=== PATIENT | male | born 1985 | race Caucasian/White ===

== ENCOUNTER 2019-10-08 06:45 | Day surgery (SDC) | payer BC, SELFPAY ==
[2019-10-05 09:52] VITALS: BMI 34.2
[2019-10-08 07:16] VITALS: BP 130/79; PULSE 89; RESP 18; TEMP 36.4; O2SAT 99
[2019-10-08 08:20] LABS: Coronavirus 19 IgG Antibody Negative (Negative); Coronavirus 19 IgM Antibody Negative (Negative)
--- NOTE | 2019-10-08 08:31 | P.PN_ITS ---
[facility] Anesthesia Checklist - Patient Identification Patient Identification: Arm Band - Structural Data Admitted From: Home Planned Operative Procedure/s: vasectomy Consent for Planned Operative Procedure(s) Verified: Yes Verified Documents: Surgical Consent, History and Physical - NPO Status Verified Time NPO: 00:00 - Additional verifications Anesthesia Reactions: No Hx Blood Transfusions: No - Airway Assessment C-Spine Mobility Assessed: Yes (mp2) TMJ Mobility Assessed: Yes Dentition: Good Dentition - Neurological Assessment Level of Consciousness: Awake, Alert - Anesthesia Plan Anesthesia Risk discussed: Yes Anesthesia Plan: Verified ASA Class: II Anesthesia Type: MAC [facility] History I have reviewed the patient's past medical history: Yes Medical History: Reports:: Anxiety, Depression, Hyperlipidemia Denies:: Cancer, Diabetes Mellitus Type 1, Diabetes Mellitus Type 2, Internal Pacemaker, MRSA, Seizures *Have you ever received a pneumonia vaccine?: No *Have you received a flu vaccine this season?: No Anesthesia experience/problems:: nac Other Surgeries: Yes: Hernia Repair. No: Pacemaker Amputation: No Fractures: No - *Social History Educational Level: Completed High School Smoking Status: Current every day smoker Tobacco Type: cigarettes # Packs/Day (cigarettes): 1 Alcohol Intake: never Alcohol Intake Frequency:: a few times a week Substance Use Type: denies use *Occupational Status:: employed Housing: house Household Members: children *Travel in the last 8 weeks: None - Psychiatric History Pschychiatric History:: Reports:: Anxiety, Depression Family Hx:: Cancer, Diabetes, Hyperlipidemia, Hypertension
[2019-10-08 10:20] VITALS: TEMP 43
[2019-10-08 10:42] VITALS: BP 109/74; PULSE 88; RESP 16; TEMP 36.9; O2SAT 99
[2019-10-08 10:57] VITALS: BP 119/72; PULSE 89; RESP 16; O2SAT 99
[2019-10-08 11:12] VITALS: BP 120/78; PULSE 86; RESP 16; O2SAT 100
--- NOTE | 2019-10-08 15:29 | HMH.OPNOTE ---
Date of procedure: 10/08/19 Pre-op Diagnosis:: Sterilization Post-op Diagnosis:: Same Procedure performed:: Bilateral vasectomy Surgeon:: Arvind Arambula MD GMAT INSTRUCTOR:: Denzel Lewis Anesthesia: MAC Estimated blood loss (mL): 2 Clinical Note:: Patient is a 33-year-old white male who was seen in August for vasectomy consultation. He presents today for the procedure. Operative findings:: Testicular exam normal. Procedure went well without complication Operative note:: Patient taken to the operating room after informed consent was obtained. Placed on the operating table in the supine position and monitored anesthesia care administered. He was prepped and draped in the standard surgical fashion. Left vas was grasped and brought up to the median raphae. Local anesthetic placed under the skin and in and around the left vas. Incision was then made in the skin and the left vas was grasped with a tenaculum. The vas was brought up through the skin and the basal sheath was incised. The vas proper was dissected from its surrounding tissue and one clip was placed distally and 2 proximally. A 1 cm segment was excised and the ends of the vas were cauterized. Hemostasis achieved of the vascular structures and the left vas was dropped back in the left hemiscrotum. Identical procedure was performed on the right side after local anesthetic was infiltrated in and around the right vas. The right vas dropped back into the right hemiscrotum and a 3-0 chromic placed into the skin and a horizontal mattress fashion. Pressure dressing applied. Patient tolerated procedure well without complication. Discharged to the recovery room with routine postoperative instructions and medications. Condition: stable Disposition: same day Specimens:: Vas segments were removed but not sent Complications:: None
== END 2019-10-08 11:12 | disposition home or self-care (01) ==
PROVIDERS: PCP Family Medicine; Visit Provider Urology
PROC: (CPT 55250; principal; 2019-10-08 09:45)
DX: Z30.2 Encounter for sterilization (principal); F41.9 Anxiety disorder, unspecified; F32.9 Major depressive disorder, single episode, unspecified; N52.9 Male erectile dysfunction, unspecified; Z83.3 Family history of diabetes mellitus; Z82.3 Family history of stroke; Z82.49 Family history of ischemic heart disease and other diseases of the circulatory system
CPT/HCPCS: 55250; 36415; 86328; 96374

== ENCOUNTER 2020-08-20 09:31 | Emergency (ER) | payer BC, SELFPAY ==
[2020-08-20 09:35] VITALS: BP 125/87; PULSE 123; RESP 20; TEMP 36.9; O2SAT 98; BMI 32.8
--- NOTE | 2020-08-20 09:59 | HMH.EDUTC ---
[facility] Disposition Clinical Impression: Gastroenteritis Disposition: Home, Self-Care Condition on Discharge: Good Instructions: DI for Viral Gastroenteritis -- Adult, Ondansetron Additional Instructions: Drink plenty of fluids. Take tylenol for pain or fever. Take the zofran for nausea/vomiting. Follow up with your regular doctor. GO TO THE ER FOR ANY WORSENING SYMPTOMS Prescriptions: Ondansetron [Zofran 4mg ODT] 4 mg PO Q8HP PRN #12 tab.rapdis PRN Reason: Nausea Transmission Status: Received by [id number] Referrals: Mak Richards MD [Primary Care Provider] - Forms: Work/School Release Time of Disposition: 10:06 Medical Decision Making - Medical Records Medical records reviewed: No: I reviewed the patient's medical records. - Anoop Inquiry Pt receiving controlled substance: No Vital Signs: 08/20/20 09:35 08/20/20 10:07 Temperature 98.5 F 98.5 F Temperature Source Oral Pulse Rate 123 H Pulse Rate [Left Brachial] 123 H Respiratory Rate 20 20 Blood Pressure 125/87 Blood Pressure [Left Arm] 125/87 Blood Pressure Mean [Left Arm] 99 Blood Pressure Source [Left Arm] Automatic Cuff Blood Pressure Position [Left Arm] Sitting 02 Sat by Pulse Oximetry 98 Oxygen Delivery Method Room Air [facility] HPI - General Stated complaint: possible stomach bug Time Seen by Provider: 08/20/20 09:59 Mode of Arrival: Ambulatory Source of Information: Patient Limitations: No Limitations Description of Symptoms (Recalled from Triage Doc. by RN): PATIENT C/O VOMITING AND DIARRHEA THAT STARTED APPROX 2100 LAST NIGHT HEENT Symptoms (Recalled from RN notes): No Resp Symptoms (Recalled from RN notes): No Skin Symptoms (Recalled from RN notes): No MS Symptoms (Recalled from RN notes): No Functional Status (Recalled from RN notes): WNL - History of Present Illness Provider Complaint: He states that since last night he has had n/v/d. He denies any abdominal pain. His had similar symptoms 2 days ago. - Related Data Home Medications Medication Instructions Recorded Confirmed ARIPiprazole [Aripiprazole] 5 mg PO QHS 08/20/20 08/20/20 Buspirone HCl [Buspar 10mg 10 mg PO BID 08/20/20 08/20/20 tablet] Trazodone HCl 50 mg PO QHS PRN 08/20/20 08/20/20 Previous Rx's Medication Instructions Recorded Ondansetron [Zofran 4mg ODT] 4 mg PO Q8HP PRN #12 tab.rapdis 08/20/20 Allergies Allergy/AdvReac Type Severity Reaction Status Date / Time No Known Allergies Allergy Verified 08/11/20 15:54 - Worker's Comp Is this a Worker's Comp case?: No [facility] History - Hepatitis A Screen Drug use history?: No High risk sexual behaviors?: No History of sexually transmitted infection?: No Currently employed?: No Childcare worker?: No Do you have indoor plumbing?: Yes Do you have electricity?: Yes Attestation statement:: This patient has been screened for Hepatitis A risk factors. I have reviewed the patient's past medical history: Yes Medical History: Reports:: Anxiety, Depression, Hyperlipidemia Denies:: Cancer, Diabetes Mellitus Type 1, Diabetes Mellitus Type 2, Internal Pacemaker, MRSA, Seizures Other Surgeries: Yes: No Previous Surgery, Hernia Repair. No: Pacemaker Amputation: No Fractures: No - Social History Smoking Status: Current every day smoker Tobacco Type: cigarettes # Packs/Day (cigarettes): 1 Alcohol Intake: never Alcohol Intake Frequency:: a few times a week Substance Use Type: denies use Occupational Status: other Housing: house Household Members: children - Psychiatric History Pschychiatric History:: Reports:: Anxiety, Depression Family Hx:: Cancer, Diabetes, Hyperlipidemia, Hypertension ROS Obtained: Yes All systems reviewed & no additional complaints - Constitutional Constitutional: Reports chills, Denies fever(s), Reports poor appetite, Reports malaise - Eyes Eyes: Denies eye discharge - Cardiovascular Cardiovascular: Herminio
[2020-08-20 10:07] VITALS: BP 125/87; PULSE 123; RESP 20; TEMP 36.9; O2SAT 98
== END 2020-08-20 10:13 | disposition home or self-care (01) ==
PROVIDERS: Emergency Provider Nurse Practitioner Family; PCP Family Medicine
DX: K52.9 Noninfective gastroenteritis and colitis, unspecified (principal); F41.8 Other specified anxiety disorders; E78.5 Hyperlipidemia, unspecified; F17.210 Nicotine dependence, cigarettes, uncomplicated
CPT/HCPCS: 99202; G0463

== ENCOUNTER 2021-04-29 13:22 | Emergency (ER) | payer BC, SELFPAY ==
[2021-04-29 13:12] VITALS: BP 173/100; PULSE 124; RESP 24; TEMP 36.8; O2SAT 94; BMI 33.0
[2021-04-29 13:30] VITALS: BP 151/103; PULSE 101; RESP 17; O2SAT 96
--- NOTE | 2021-04-29 13:52 | HMH.EDGENADL ---
ED Disposition Clinical Impression: Drug overdose Disposition: Home, Self-Care Condition on Discharge: Fair Referrals: Provider,Referral, [Primary Care Provider] - - Critical Care Critical Care Time: No Attestation: On 04/29/21, the high probability of a clinically significant, sudden or life threatening deterioration of the following system(s) required my full and direct attention, intervention and personal management. The time I documented below is in addition to time spent performing reported procedures but includes the following listed in this critical care notation. Medical Decision Making - Anoop Inquiry Pt receiving controlled substance: Yes Anoop was queried for this patient: Yes Risks and benefits of using a controlled substance: were discussed with pt by me Vital Signs: 04/29/21 13:12 Temperature 98.3 F Temperature Source Oral Pulse Rate [Right Radial] 124 H Respiratory Rate 24 Blood Pressure [Right Arm] 173/100 H Blood Pressure Mean [Right Arm] 124 Blood Pressure Source [Right Arm] Automatic Cuff Blood Pressure Position [Right Arm] Sitting 02 Sat by Pulse Oximetry 94 L Oxygen Delivery Method Room Air Medical Decision Narrative: Patient is a 35-year-old male with no past medical history presenting to the ED after an overdose. Patient is awake, alert, not in acute distress patient is hemodynamically stable, afebrile. At this point is stable for discharge. Patient given strict return precautions and follow-up instructions. General Adult HPI - General Chief complaint: Overdose Stated complaint: OD Time Seen by Provider: 04/29/21 13:30 Mode of Arrival: EMS Limitations: No Limitations Description of Symptoms (Recalled from ER Triage Doc. by RN): Pt to ED following an OD. Pt advises that he snorted 1/2 of a Percocet 30mg. Pt A&O x3 upon arrival to ED - History of Present Illness HPI narrative: patient is a 35-year-old male with no past medical history presenting to the ED after an overdose. Patient states that he took half of a Percocet. Patient states that he snorted this. Patient states that most was called and patient was given Narcan. Patient states that he remembers feeling very tired does not recall any other events. Currently patient states that he is feeling fine. Patient is feeling remorseful. Patient denies any other drug use, denies any IV drug use. - Related Data Previous Rx's Medication Instructions Recorded sildenafil (pulm.hypertension) 20 20 mg PO TID PRN #30 tab 10/30/20 mg tablet sildenafil 25 mg tablet 25 mg PO DAILY #30 tab 10/30/20 aripiprazole 5 mg tablet 5 mg PO QHS #30 tab 03/30/21 buspirone 10 mg tablet 10 mg PO BID #30 tab 03/30/21 trazodone 100 mg tablet 100 mg PO QHS #30 tab 03/30/21 methylphenidate HCl 20 mg 20 mg PO DAILY #30 cap 04/28/21 capsule,extended release (40-60) sprinkle Allergies Allergy/AdvReac Type Severity Reaction Status Date / Time No Known Allergies Allergy Verified 03/30/21 14:28 [facility] History - Hepatitis A Screen Drug use history?: No High risk sexual behaviors?: No History of sexually transmitted infection?: No Currently employed?: No Childcare worker?: No Do you have indoor plumbing?: Yes Do you have electricity?: Yes Attestation statement:: This patient has been screened for Hepatitis A risk factors. I have reviewed the patient's past medical history: Yes Medical History: Reports:: Anxiety, Depression, Hyperlipidemia Denies:: Cancer, Diabetes Mellitus Type 1, Diabetes Mellitus Type 2, Internal Pacemaker, MRSA, Seizures Other Surgeries: Yes: No Previous Surgery, Hernia Repair. No: Pacemaker Amputation: No Fractures: No - Social History Smoking Status: Current every day smoker Tobacco Type: cigarettes # Packs/Day (cigarettes): 1 Alcohol Intake: never Alcohol Intake Frequency:: a few times a week Substance Use Type: denies use Occupational Status: other Housing: house Household Members: child
[2021-04-29 14:00] VITALS: BP 140/99; PULSE 103; RESP 19; O2SAT 97
[2021-04-29 14:20] VITALS: BP 150/101; PULSE 79; RESP 18; TEMP 36.8; O2SAT 94
== END 2021-04-29 14:20 | disposition home or self-care (01) ==
PROVIDERS: Emergency Provider Emergency Medicine
DX: T40.2X1A Poisoning by other opioids, accidental (unintentional), initial encounter (principal); Y92.009 Unspecified place in unspecified non-institutional (private) residence as the place of occurrence of the external cause; F41.8 Other specified anxiety disorders; F17.210 Nicotine dependence, cigarettes, uncomplicated; E78.5 Hyperlipidemia, unspecified
CPT/HCPCS: 99281

== ENCOUNTER 2023-05-03 13:16 | Emergency (ER) | payer SELFPAY ==
--- NOTE | 2023-05-03 14:24 | ED_ITS ---
Discharge Plan Disposition Patient Disposition: Home, Self-Care Condition: Good Prescriptions Prescriptions: New oseltamivir [Tamiflu] 75 mg capsule 75 mg PO BID Qty: 10 0RF nlxmugxfjqfvuyr-sfgybignt-ZL [Bromfed DM] 2-30-10 mg/5 mL Syrup 5 ml PO Q6H PRN (Reason: Cough) Qty: 240 0RF No Action trazodone 100 mg tablet 100 mg PO QHS Qty: 30 1RF aripiprazole 5 mg tablet 5 mg PO QHS Qty: 30 1RF buspirone 10 mg tablet 10 mg PO BID Qty: 30 1RF sildenafil 25 mg tablet 25 mg PO DAILY Qty: 30 2RF sildenafil (pulm.hypertension) 20 mg tablet 20 mg PO TID PRN (Reason: sexual activity) Qty: 30 5RF Rx Instructions: administer doses at least 4-6 hours apart methylphenidate HCl 20 mg cap,ER sprinkle,biphasic 40-60 20 mg PO DAILY Qty: 30 0RF naloxone 4 MG spray,non-aerosol 4 mg NS ONCE Qty: 1 0RF Referrals Follow up/Referrals: Provider,Referral, MD [Primary Care Provider] - See instructions Activity Restrictions/Add. Instructions Additional Instructions/Restrictions: Drink plenty of fluids. Take tylenol or ibuprofen for pain or fever. Take the medications as directed. Follow up with your regular doctor. GO TO THE ER FOR ANY WORSENING SYMPTOMS Clinical Impressions Clinical Impression: Influenza, Acute viral syndrome Stand Alone Forms Stand Alone Forms: Work/School Release Instructions Patient Instructions: DI for Influenza -- Adult, Oseltamivir Discharge ED Provider: Pan Escalona [facility] General Stated complaint: cough, body aches, fever, sore throat Time Seen by Provider: 05/03/23 14:24 History of Present Illness Provider Complaint: He states that for the past 24 hours he has had fever, body aches, chills, and a nonproductive cough. Related Data Previous Rx's Medication Instructions Recorded sildenafil (pulm.hypertension) 20 20 mg PO TID PRN sexual activity 10/30/20 mg tablet #30 tabs sildenafil 25 mg tablet 25 mg PO DAILY #30 tabs 10/30/20 aripiprazole 5 mg tablet 5 mg PO QHS . #30 tabs 03/30/21 buspirone 10 mg tablet 10 mg PO BID . #30 tabs 03/30/21 trazodone 100 mg tablet 100 mg PO QHS #30 tabs 03/30/21 methylphenidate HCl 20 mg 20 mg PO DAILY #30 caps 04/28/21 capsule,extended release (40-60) sprinkle naloxone 4 mg/actuation nasal spray 4 mg NS ONCE #1 mL 04/29/21 vdgduqoqrhrmfje-fkmxlmprcjcgydx-JV 5 ml PO Q6H PRN Cough #240 mL 05/03/23 2 mg-30 mg-10 mg/5 mL oral syrup (Bromfed DM) oseltamivir 75 mg capsule (Tamiflu) 75 mg PO BID #10 caps 05/03/23 Allergies Allergy/AdvReac Type Severity Reaction Status Date / Time No Known Allergies Allergy Verified 03/30/21 14:28 [facility] Disclaimer: The information contained in this section may have been updated after the patient was seen, as this information can be updated by other users. Social History Smoking Status: Current every day smoker tobacco type: cigarettes packs per day: 1 second hand exposure: No alcohol intake: never substance use type: denies use current occupational status: other Travel in the last 8 weeks: None household members: children housing: house number of children: 2 current occupation: [employer] current occupational exposures/hazards: No caffeine: Yes ROS Obtained: Yes All systems reviewed & no additional complaints except as documented Constitutional Constitutional: Reports chills and Reports fever(s) Eyes Eyes: Denies eye discharge ENT Ears, Nose, Mouth, and Throat: Reports as per HPI Cardiovascular Cardiovascular: Denies chest pain Respiratory Respiratory: Denies chest congestion and Reports cough Gastrointestinal Gastrointestingal: Reports nausea; Denies abdominal pain, constipation, cramping, diarrhea or vomiting Musculoskeletal Musculoskeletal: Denies arthralgias Integumentary/Breasts Skin/Breast: Denies rash Neurologic Neurologic: Denies paresthesias Physical Exam General General appearance: alert and in no apparent distress Head Head exam: atraumatic, normocephalic and normal inspection Eye Eye exam: Present normal appearance, PERRL and EOMI ENT ENT exam: Present normal exam, normal oropharynx, mucous membranes moist, TM's normal bilaterally and normal external ear exam Neck Neck exam: Present normal inspection, full ROM and trachea midline; Absent meningismus or lymphadenopathy Chest Chest inspection: Present normal inspection and symmetric chest wall rise; Absent tenderness Respiratory Respiratory exam: Present normal lung sounds bilaterally; Absent respiratory distress Cardiovascular Cardiovascular exam: Present regular rate and normal rhythm; Absent JVD Abdominal Exam Abdominal exam: Present soft and normal bowel sounds; Absent distention, tenderness or guarding Extremities Exam Extremities exam: Present normal inspection, full ROM and normal capillary refill; Absent calf tenderness Back Exam Back exam: Present normal inspection; Absent tenderness Neurological Exam Neurological exam: Present alert and oriented X3 Psychiatric Psychiatric exam: Present normal affect and normal mood Skin Skin exam: Present warm, dry, intact and normal color Lymphatic Lymphatic Findings: no adenopathy Medical Decision Making Medical Records Medical records reviewed: No I reviewed the patient's medical records. Anoop Inquiry Pt receiving controlled substance: No Lab Data Lab results reviewed: Yes I reviewed the patient's lab results.
[2023-05-03 14:25] VITALS: BP 125/67; PULSE 99; RESP 18; TEMP 37.6; O2SAT 97; BMI 33.5
[2023-05-03 14:31] LABS: UTC Influenza A Antigen Negative (Negative); UTC Influenza B Antigen Negative (Negative)
[2023-05-03 14:51] VITALS: BP 125/67; PULSE 90; RESP 18; TEMP 37.6; O2SAT 97
== END 2023-05-03 14:52 | disposition home or self-care (01) ==
PROVIDERS: Emergency Provider Nurse Practitioner Family
DX: J10.1 Influenza due to other identified influenza virus with other respiratory manifestations (principal); R50.9 Fever, unspecified; R07.0 Pain in throat; R05.9 Cough, unspecified; M79.18 Myalgia, other site; F17.210 Nicotine dependence, cigarettes, uncomplicated
CPT/HCPCS: 87804; 99212; 99214; G0463

== ENCOUNTER 2023-05-03 19:56 | Emergency (ER) | payer SELFPAY ==
--- NOTE | 2023-05-03 20:16 | ECG_ITS ---
APPROVED REPORT Exam: Resting ECG HR:108 bpm ECG Measurements Heart Rate [address] 167 P 81 QRSd 97 QRS 106 QT 315 T 76 QTc 379 Conclusion SINUS TACHYCARDIA POSSIBLE RIGHT VENTRICULAR HYPERTROPHY [SOME/ALL OF: PROMINENT R IN V1, LATE TRANSITION, RAD, BETH, SSS] ANTERIOR MYOCARDIAL INFARCTION , OF INDETERMINATE AGE [40+ ms Q WAVE AND/OR ST/T ABNORMALITY IN V3/V4] ABNORMAL ECG UNCONFIRMED REPORT Electronically signed by : Basim Stanley MD 05/04/2023 09:00:31
[2023-05-03 20:30] VITALS: BP 101/67; PULSE 98; RESP 20; O2SAT 98
[2023-05-03 20:31] VITALS: BP 134/101; PULSE 111; RESP 20; TEMP 37.6; O2SAT 100; BMI 33.5
[2023-05-03 21:00] VITALS: BP 98/59; PULSE 102; O2SAT 100
[2023-05-03 21:02] LABS: Coronavirus 19, PCR Not Detected (NotDetected); Influenza B, PCR Not Detected (NotDetected)
[2023-05-03 21:09] LABS: Chloride 101 mmol/L (98-107); Potassium 3.9 mmoL/L (3.5-5.1); Sodium 135 mmol/L (136-145)
[2023-05-03 21:12] LABS: Alanine Aminotransferase 57 U/L (12-78); Albumin Level 4.4 g/dl (3.5-5.0); Albumin/Globulin Ratio 1.4 (1.1-1.8); Alkaline Phosphatase 57 U/L (38-126); Anion Gap 15.9 mEq/L (5-15); Aspartate Amino Transferase 59 U/L (17-59); Bilirubin,Total 0.6 mg/dl (0.2-1.3); Blood Urea Nitrogen 13 mg/dl (9-20); Carbon Dioxide 22 mmol/L (22.0-30.0); Creatinine Clearance Estimated 112 mL/min (50-200); Estimated Glomerular Filt Rate 68 ml/min (>60); GFR (African American) 82 ML/MIN (>60); Globulin 3.2 g/dL (1.3-3.2); Total Protein,Serum 7.6 g/dl (6.3-8.2)
[2023-05-03 21:13] LABS: Calcium 8.6 mg/dl (8.4-10.2); Glucose 104 mg/dl (74-100)
[2023-05-03 21:16] LABS: Basophils % 0.4 % (0.1-2.0); Eosinophils # 0.1 K/mm3 (0.0-0.4); Eosinophils % 1.1 % (0.1-12.0); Hematocrit 47.7 % (42.0-52.0); Hemoglobin 16.7 g/dL (14.1-18.0); Lymphocytes # 0.5 K/mm3 (0.7-4.5); Lymphocytes % 6.1 % (10-50); Mean Corpuscular Hemoglobin 31.7 pg (27.0-31.2); Mean Corpuscular Volume 90.4 fl (80-94); Mean Platelet Volume 8.2 fl (7.4-10.4); Monocytes # 0.5 K/mm3 (0.1-1.0); Monocytes % 6.4 % (1.7-9.3); Neutrophils # 7.1 K/mm3 (1.8-7.8); Neutrophils % 85.9 % (37.0-80.0); Platelet Count 201 K/mm3 (142-424); Red Blood Count 5.28 M/mm3 (4.60-6.20); Red Cell Distribution Width 13.2 % (11.5-17.5); White Blood Count 8.3 K/mm3 (4.8-10.8)
[2023-05-03 21:18] LABS: MANUAL DIFFERENTIAL MANUAL DIFFERENTIAL (MANUAL DIFF)
[2023-05-03 21:28] LABS: Troponin I < 0.01 ng/ml (0.00-0.034)
[2023-05-03 21:29] LABS: T4 (Thyroxine) 7.9 ug/dl (5.53-11.0)
[2023-05-03 21:35] LABS: Lymphocytes % 11 % (10-50); Monocytes % 2 % (2-9); Neutrophils % 87 % (42-76); Platelet Estimate Normal; RBC Morphology Normal; Total Cells Counted 100
[2023-05-03 21:43] LABS: Thyroid Stimulating Hormone 0.32 uIU/mL (0.465-4.68)
[2023-05-03 22:14] VITALS: BP 104/45; PULSE 85; RESP 16; TEMP 36.9
[2023-05-03 22:16] LABS: Influenza A, PCR Detected (NotDetected)
--- NOTE | 2023-05-04 00:30 | HMH.EDGENADL ---
Discharge Plan Disposition Patient Disposition: Home, Self-Care Condition: Good Prescriptions Prescriptions: No Action trazodone 100 mg tablet 100 mg PO QHS Qty: 30 1RF aripiprazole 5 mg tablet 5 mg PO QHS Qty: 30 1RF buspirone 10 mg tablet 10 mg PO BID Qty: 30 1RF sildenafil 25 mg tablet 25 mg PO DAILY Qty: 30 2RF sildenafil (pulm.hypertension) 20 mg tablet 20 mg PO TID PRN (Reason: sexual activity) Qty: 30 5RF Rx Instructions: administer doses at least 4-6 hours apart methylphenidate HCl 20 mg cap,ER sprinkle,biphasic 40-60 20 mg PO DAILY Qty: 30 0RF oseltamivir [Tamiflu] 75 mg capsule 75 mg PO BID Qty: 10 0RF otlivmxabpmnhyg-kpzbpkndm-AC [Bromfed DM] 2-30-10 mg/5 mL Syrup 5 ml PO Q6H PRN (Reason: Cough) Qty: 240 0RF naloxone 4 MG spray,non-aerosol 4 mg NS ONCE Qty: 1 0RF Referrals Follow up/Referrals: Provider,Referral, MD [Primary Care Provider] - See instructions Activity Restrictions/Add. Instructions Additional Instructions/Restrictions: You were evaluated in the emergency department today. Take Tylenol and ibuprofen every 4-6 hours as needed for pain and fever. Hydrate is much as possible. Return to the emergency department for new or worsening symptoms. Clinical Impressions Clinical Impression: Viral URI with cough Stand Alone Forms Stand Alone Forms: Work/School Release Instructions Patient Instructions: DI for Viral Syndrome Discharge ED Provider: Gem Jones General Adult HPI General Chief complaint: Upper Respiratory Infection Stated complaint: fever, cough, chest burning, body aches Time Seen by Provider: 05/03/23 20:17 Mode of Arrival: Ambulatory Source of Information: Patient Limitations: No Limitations Description of Symptoms (Recalled from ER Triage Doc. by RN): pt ambulates in sweating perfusely. pt c/o a persistent wet cough, congestion, fever up to 105.3 F at home, burning in his lungs, [place], photophobia, and SOA. pt thinks he had a syncopal episode about an hour [employer]ACH[employer]PER[employer] HEL[employer]. pt states he has been exposed to flu B. Pt was seen in the [facility] today and told he was negative for the flu. pt stated taking oscillococcinum today which helped slightly with his symptoms. pts SOA worsens with talking. pt is afebrile at this time at 99.7, his last dose of ibuprofen was 400mg at 1830. History of Present Illness HPI narrative: This patient is a 37-year-old male who denies significant past medical history presenting to the emergency department for evaluation with concern for fever, cough, congestion, body aches, burning in his lungs, headache, diaphoresis, and shortness of breath. He thinks that he had a syncopal episode approximately 1 hour prior to arrival given the symptoms. Patient states that his daughter who he was in a hotel with had flu B, so he went to [facility] to be evaluated today when tested negative for COVID and flu. He states he is concerned that he still may have the flu. He states that he took yfjj-uue-ycdvfqp medication including oscillococcinum today with no improvement in symptoms upon arrival. No other concerns or complaints noted at this time. Related Data Previous Rx's Medication Instructions Recorded sildenafil (pulm.hypertension) 20 20 mg PO TID PRN sexual activity 10/30/20 mg tablet #30 tabs sildenafil 25 mg tablet 25 mg PO DAILY #30 tabs 10/30/20 aripiprazole 5 mg tablet 5 mg PO QHS . #30 tabs 03/30/21 buspirone 10 mg tablet 10 mg PO BID . #30 tabs 03/30/21 trazodone 100 mg tablet 100 mg PO QHS #30 tabs 03/30/21 methylphenidate HCl 20 mg 20 mg PO DAILY #30 caps 04/28/21 capsule,extended release (40-60) sprinkle naloxone 4 mg/actuation nasal spray 4 mg NS ONCE #1 mL 04/29/21 hnbayupezisjrpf-ctbflweaoseuuqz-SJ 5 ml PO Q6H PRN Cough #240 mL 05/03/23 2 mg-30 mg-10 mg/5 mL oral syrup (Bromfed DM) oseltamivir 75 mg capsule (Tamiflu) 75 mg PO BID #10 caps 05/03/23 Allergies Allergy/AdvReac Type Severity Reaction Statu
== END 2023-05-03 22:28 | disposition home or self-care (01) ==
PROVIDERS: Emergency Provider Emergency Medicine
DX: J06.9 Acute upper respiratory infection, unspecified (principal); R05.9 Cough, unspecified; R51.9 Headache, unspecified; R06.02 Shortness of breath; R50.9 Fever, unspecified; F17.210 Nicotine dependence, cigarettes, uncomplicated; R00.0 Tachycardia, unspecified
CPT/HCPCS: 80053; 84436; 84443; 84484; 85007; 85025; 87636; 93005; 96361; 96374; 96375; 99285; J0131; J2405

== ENCOUNTER 2023-07-04 08:37 | Emergency (ER) | payer SELFPAY ==
[2023-07-04 08:45] VITALS: BP 137/81; PULSE 81; RESP 18; TEMP 36.7; O2SAT 98; BMI 32.3
--- NOTE | 2023-07-04 08:59 | XR_ITS ---
FINAL REPORT CLINICAL HISTORY: Right elbow pain COMPARISON: None FINDINGS: AP, oblique, and lateral views of the right elbow were obtained. There is no prior exam for comparison. There is no acute fracture or dislocation. Joint space is preserved. There is no joint effusion or other soft tissue abnormality. IMPRESSION: No acute osseous abnormality of the right elbow. Reviewed, Interpreted and Dictated by Naomi Atwood MD Transcribed by Kenna Maharaj Authenticated and [facility]
--- NOTE | 2023-07-04 09:04 | ED_ITS ---
Discharge Plan Disposition Patient Disposition: Home, Self-Care Condition: Good Prescriptions Prescriptions: New ibuprofen [IBU] 800 mg tablet 800 mg PO TIDP PRN (Reason: Moderate Pain) Qty: 20 0RF No Action trazodone 100 mg tablet 100 mg PO QHS Qty: 30 1RF aripiprazole 5 mg tablet 5 mg PO QHS Qty: 30 1RF buspirone 10 mg tablet 10 mg PO BID Qty: 30 1RF sildenafil 25 mg tablet 25 mg PO DAILY Qty: 30 2RF sildenafil (pulm.hypertension) 20 mg tablet 20 mg PO TID PRN (Reason: sexual activity) Qty: 30 5RF Rx Instructions: administer doses at least 4-6 hours apart methylphenidate HCl 20 mg cap,ER sprinkle,biphasic 40-60 20 mg PO DAILY Qty: 30 0RF oseltamivir [Tamiflu] 75 mg capsule 75 mg PO BID Qty: 10 0RF [id number]-[id number] [Bromfed DM] 2-30-10 mg/5 mL Syrup 5 ml PO Q6H PRN (Reason: Cough) Qty: 240 0RF naloxone 4 MG spray,non-aerosol 4 mg NS ONCE Qty: 1 0RF Referrals Follow up/Referrals: Provider,Referral, MD [Primary Care Provider] - See instructions Ryan Walter DO [Staff Physician] - See instructions Activity Restrictions/Add. Instructions Additional Instructions/Restrictions: Take Ibuprofen as prescribed for pain Follow up with your Family Doctor or Orthopedics for further evaluation and testing May Take Tylenol if you need something more for pain Straight to ER if any life threatening symptoms Clinical Impressions Clinical Impression: Arm pain Qualifiers: Laterality: right Qualified Code(s): M79.601 - Pain in right arm Instructions Patient Instructions: DI for Arm Pain, Ibuprofen Discharge ED Provider: Mary Lou Mark[place] [facility] [place] Stated complaint: [id number] @06:30, right arm injury Mode of Arrival: Ambulatory Source of Information: Patient Limitations: No Limitations Time Seen by Provider: 07/04/23 09:04 Description of Symptoms (Recalled from Triage Doc. by RN): PATIENT C/O INJURY TO RIGHT ARM WHILE WORKING AND STATES A BURNING PAIN RADIATES FROM FOREARM TO NECK HEENT Symptoms (Recalled from RN notes): No Resp Symptoms (Recalled from RN notes): No Skin Symptoms (Recalled from RN notes): No MS Symptoms (Recalled from RN notes): Yes Functional Status (Recalled from RN notes): WNL History of Present Illness Provider Complaint: Patient states that he was pulling on the trailer at work and started having achy like pain in his right elbow area that is worse with movement and sometimes will hurt up into his neck States hurts worse with movement but denies falling States that work told him he needed to come in and get checked Related Data Previous Rx's Medication Instructions Recorded sildenafil (pulm.hypertension) 20 20 mg PO TID PRN sexual activity 10/30/20 mg tablet #30 tabs sildenafil 25 mg tablet 25 mg PO DAILY #30 tabs 10/30/20 aripiprazole 5 mg tablet 5 mg PO QHS . #30 tabs 03/30/21 buspirone 10 mg tablet 10 mg PO BID . #30 tabs 03/30/21 trazodone 100 mg tablet 100 mg PO QHS #30 tabs 03/30/21 methylphenidate HCl 20 mg 20 mg PO DAILY #30 caps 04/28/21 capsule,extended release (40-60) sprinkle naloxone 4 mg/actuation nasal spray 4 mg NS ONCE #1 mL 04/29/21 zsfmvdaphnyuyek-bpcmuuhokoysdbd-QS 5 ml PO Q6H PRN Cough #240 mL 05/03/23 2 mg-30 mg-10 mg/5 mL oral syrup (Bromfed DM) oseltamivir 75 mg capsule (Tamiflu) 75 mg PO BID #10 caps 05/03/23 ibuprofen 800 mg tablet (IBU) 800 mg PO TIDP PRN Moderate Pain 07/04/23 #20 tabs Allergies Allergy/AdvReac Type Severity Reaction Status Date / Time No Known Allergies Allergy Verified 05/03/23 20:45 Worker's Comp Is this a Worker's Comp case?: No [facility] Disclaimer: The information contained in this section may have been updated after the patient was seen, as this information can be updated by other users. Social History Smoking Status: Light tobacco smoker tobacco type: cigarettes packs per day: 1 second hand exposure: No alcohol intake: never substance use type: denies use current occupational status: other Travel in the last 8 weeks: None household members: children housing: house number of children: 2 current occupation: [employer] current occupational exposures/hazards: No caffeine: Yes ROS Obtained: Yes All systems reviewed & no additional complaints except as documented and Yes Systems reviewed as appropriate & no additional complaints except as documented Constitutional Constitutional: Reports system reviewed and no additional complaints, except as documented and Reports as per HPI ENT Ears, Nose, Mouth, and Throat: Reports system reviewed and no additional complaints, except as documented and Reports as per HPI Cardiovascular Cardiovascular: Reports system reviewed and no additional complaints, except as documented and Reports as per HPI Respiratory Respiratory: Reports system reviewed and no additional complaints, except as documented and Reports as per HPI Gastrointestinal Gastrointestingal: Reports system reviewed and no additional complaints, except as documented and as per HPI Musculoskeletal Musculoskeletal: Reports system reviewed and no additional complaints, except as documented, Reports as per HPI and Reports other Comments: Pain in his right elbow area that sometimes radiates up into upper arm and shoulder/neck area Physical Exam General General appearance: alert and in no apparent distress ENT ENT exam: Present mucous membranes moist Respiratory Respiratory exam: Present normal lung sounds bilaterally; Absent respiratory distress or wheezes Cardiovascular Cardiovascular exam: Present regular rate, normal rhythm and normal heart sounds Abdominal Exam Abdominal exam: Present soft and normal bowel sounds; Absent distention or tenderness Expanded Upper Extremity Exam Right: L/R Arms Top View: 1. achy like pain in elbow worse with movement that sometimes radiates up arm into shoulder/neck area Denies falling no bruising no swelling Neurological Exam Neurological exam: Present alert, oriented X3 and normal gait Medical Decision Making Anoop Inquiry Pt receiving controlled substance: No Anoop was queried for this patient: No Vital Signs: 07/04/23 08:45 Temperature 98.1 F Temperature Source Oral Pulse Rate [Left Brachial] 81 Respiratory Rate 18 Blood Pressure [Left Arm] 137/81 Blood Pressure Mean [Left Arm] 99 Blood Pressure Source [Left Arm] Automatic Cuff Blood Pressure Position [Left Arm] Sitting 02 Sat by Pulse Oximetry 98 Oxygen Delivery Method Room Air Orders (Tests/Meds): ORDERS Category Date Time Status XR elbow RT min 3V Stat Exams 07/04/23 08:59 Ordered Radiology Data #1: Image(s): Elbow Image Reviewed: Yes I have reviewed radiologist's interpretation IMPRESSION: No acute osseous abnormality of the right elbow.
[2023-07-04 09:11] VITALS: BP 137/81; PULSE 81; RESP 18; TEMP 36.7; O2SAT 98
== END 2023-07-04 10:47 | disposition home or self-care (01) ==
PROVIDERS: Emergency Provider Nurse Practitioner
DX: M79.601 Pain in right arm (principal); F17.210 Nicotine dependence, cigarettes, uncomplicated
CPT/HCPCS: 73080; 99212; 99214; G0463

== ENCOUNTER 2023-10-27 21:40 | Emergency (ER) | payer OTHER, SELFPAY ==
[2023-10-27 21:42] VITALS: BP 150/78; PULSE 90; RESP 20; TEMP 36.9; O2SAT 98; BMI 33.0
--- NOTE | 2023-10-27 22:11 | HMH.EDGENADL ---
Discharge Plan Disposition Patient Disposition: Home, Self-Care Prescriptions Prescriptions: New lidocaine 4 % adhesive patch,medicated 1 patch topical DAILY Qty: 5 0RF Rx Instructions: may leave on for up to 12 hrs ibuprofen 800 mg tablet 800 mg PO TID PRN (Reason: pain) 7 Days Qty: 20 0RF methocarbamol 750 mg tablet 750 mg PO TID 7 Days Qty: 21 0RF No Action trazodone 100 mg tablet 100 mg PO QHS Qty: 30 1RF aripiprazole 5 mg tablet 5 mg PO QHS Qty: 30 1RF buspirone 10 mg tablet 10 mg PO BID Qty: 30 1RF sildenafil 25 mg tablet 25 mg PO DAILY Qty: 30 2RF sildenafil (pulm.hypertension) 20 mg tablet 20 mg PO TID PRN (Reason: sexual activity) Qty: 30 5RF Rx Instructions: administer doses at least 4-6 hours apart methylphenidate HCl 20 mg cap,ER sprinkle,biphasic 40-60 20 mg PO DAILY Qty: 30 0RF oseltamivir [Tamiflu] 75 mg capsule 75 mg PO BID Qty: 10 0RF jpyzdxlarbcejkb-tarbwdxlj-EY [Bromfed DM] 2-30-10 mg/5 mL Syrup 5 ml PO Q6H PRN (Reason: Cough) Qty: 240 0RF naloxone 4 MG spray,non-aerosol 4 mg NS ONCE Qty: 1 0RF ibuprofen [IBU] 800 mg tablet 800 mg PO TIDP PRN (Reason: Moderate Pain) Qty: 20 0RF Referrals Follow up/Referrals: Provider,Referral, MD [Referring] - See instructions Activity Restrictions/Add. Instructions Additional Instructions/Restrictions: No evidence of acute neurologic abnormality or cardiovascular abnormality. Evidence of an acute orthopedic emergency as well. Your symptoms are consistent with a trapezius strain. Please return with any significant worsening symptoms otherwise you may follow-up with orthopedic surgery primary care doctor. Clinical Impressions Clinical Impression: Strain of left trapezius muscle Discharge ED Provider: Wan Novoa General Adult HPI General Chief complaint: Extremity Injury, Upper Stated complaint: pain and neck and shoulder Time Seen by Provider: 10/27/23 21:51 Mode of Arrival: Ambulatory Source of Information: Patient Limitations: No Limitations Description of Symptoms (Recalled from ER Triage Doc. by RN): back shoulder pain muscle spasm of left shoulder, upon triage patient is very excitable and aggitated note per ER MD and rn History of Present Illness HPI narrative: Patient is a 37-year-old male presenting today with left upper back pain. States he fell asleep on the couch woke up felt like he had a crick in his neck but has subsequently had worsening pain in the left lateral paraspinal musculature of the upper back. Denies any difficulty with range of motion in fact he has full range of motion his arm is most comfortable position with it fully extended and abducted above his head. Denies any paralysis denies any neurologic symptoms radiating down the arm he has some pain down the posterior aspect of his left arm. Denies any injuries. Denies any fever or any other symptoms. Took 600 ibuprofen and Flexeril that he had prior to arrival. Related Data Previous Rx's Medication Instructions Recorded sildenafil (pulm.hypertension) 20 20 mg PO TID PRN sexual activity 10/30/20 mg tablet #30 tabs sildenafil 25 mg tablet 25 mg PO DAILY #30 tabs 10/30/20 aripiprazole 5 mg tablet 5 mg PO QHS . #30 tabs 03/30/21 buspirone 10 mg tablet 10 mg PO BID . #30 tabs 03/30/21 trazodone 100 mg tablet 100 mg PO QHS #30 tabs 03/30/21 methylphenidate HCl 20 mg 20 mg PO DAILY #30 caps 04/28/21 capsule,extended release (40-60) sprinkle naloxone 4 mg/actuation nasal spray 4 mg NS ONCE #1 mL 04/29/21 uvdschqpdkedshd-bmamzyhvjdufslz-SK 5 ml PO Q6H PRN Cough #240 mL 05/03/23 2 mg-30 mg-10 mg/5 mL oral syrup (Bromfed DM) oseltamivir 75 mg capsule (Tamiflu) 75 mg PO BID #10 caps 05/03/23 ibuprofen 800 mg tablet (IBU) 800 mg PO TIDP PRN Moderate Pain 07/04/23 #20 tabs ibuprofen 800 mg tablet 800 mg PO TID PRN pain 7 days #20 10/27/23 tabs lidocaine 4 % topical patch 1 patch topical DAILY #5 ea 10/27/23 methocarbamol 750 mg tablet 750 mg PO TID muscle spasm 7 days 10/27/23 #21 tabs Allergies Allergy/AdvReac Type Severity Reaction Status Date / Time No Known Allergies Allergy Verified 05[facility]03/23 20:45 [facility] Disclaimer: The information contained in this section may have been updated after the patient was seen, as this information can be updated by other users. Social History Smoking Status: Current every day smoker tobacco type: cigarettes packs per day: 1 second hand exposure: No alcohol intake: never substance use type: denies use current occupational status: other Travel in the last 8 weeks: None household members: children housing: house number of children: 2 current occupation: [employer] current occupational exposures/hazards: No caffeine: Yes ROS Obtained: Yes All systems reviewed & no additional complaints except as documented Physical Exam General General appearance: alert and in no apparent distress Respiratory Respiratory exam: Present normal lung sounds bilaterally Cardiovascular Cardiovascular exam: Present regular rate Extremities Exam Extremities exam: Present other (Left shoulder no erythema no warmth full range of motion of the left shoulder there is tenderness over the trapezius muscle in the paraspinal musculature area of the left upper thoracic spine no midline cervical spine or thoracic spine tenderness) Neurological Exam Neurological exam: Present alert and oriented X3 Medical Decision Making Anoop Inquiry Pt receiving controlled substance: No Vital Signs: 10/27/23 21:42 Temperature 98.5 F Temperature Source Oral Pulse Rate [Right Radial] 90 Respiratory Rate 20 Blood Pressure [Right Arm] 150/78 H Blood Pressure Mean [Right Arm] 102 02 Sat by Pulse Oximetry 98 Oxygen Delivery Method Room Air Orders (Tests/Meds): ED MEDICATIONS Discontinued Medications Generic Name Dose Route Start Last Admin Trade Name Lisa PRN Reason Stop Dose Admin Lidocaine 1 each 10/27/23 22:06 10/27/23 22:15 Lidocaine 5% Transdermal Patch TP 10/27/23 22:07 1 each ONCE ONE Administration Medical Decision Narrative: 37-year-old with normal neurovascular exam and normal range of motion normal orthopedic exam no concern for any type of central nervous system process that would require neurosurgical intervention. No indication for any imaging labs etc. He was given a prescription of ibuprofen Robaxin he was administered a lidocaine patch and sent home with lidocaine patch as well. He was given return precautions advised to follow-up with orthopedic surgery for further evaluation as he is concerned about having numerous joint related problems. It is possible he may have some underlying rheumatologic condition but less likely. He is also been advised to follow-up with primary care doctor. Return precautions emphasized he was discharged in stable condition. Critical Care Critical Care Time Critical Care Time: No
[2023-10-27] MEDS: LIDOCAINE 5% TRANSDERMAL PATCH 1 EACH TP (22:15)
[2023-10-27 22:18] VITALS: BP 154/82; PULSE 90; RESP 98; TEMP 36.9
== END 2023-10-27 22:20 | disposition home or self-care (01) ==
PROVIDERS: Emergency Provider Student in an Organized Health Care Education/Training Program; PCP Physician Assistant
DX: S46.812A Strain of other muscles, fascia and tendons at shoulder and upper arm level, left arm, initial encounter (principal); M54.6 Pain in thoracic spine; X50.1XXA Overexertion from prolonged static or awkward postures, initial encounter; F17.210 Nicotine dependence, cigarettes, uncomplicated
CPT/HCPCS: 99283